=== PATIENT | male | born 1955 | race Caucasian/White ===

== ENCOUNTER 2022-11-05 11:45 | Observation (INO) | payer OTHER ==
[2022-11-05] MEDS ORDERED: NITROGLYCERIN 0.4 MG/TAB SL ONE (12:00)
[2022-11-05 12:05] LABS: Absolute Lymphocytes (CBC) 2.5 K/uL (0.7-4.9); Lymphocytes % 35.4 % (15.3-44.8); MCV 94.3 fL (80-100); MPV 7.4 fL (7.6-11.3); Protime INR 1.02; RBC Red Blood Cell Count 4.66 M/uL (4.33-5.43)
[2022-11-05 12:28] LABS: Albumin 3.9 g/dL (3.4-5.0); Bilirubin Direct 0.1 mg/dL (0-0.2); Bilirubin Total 0.4 mg/dL (0.2-1.0); Magnesium 2.4 mg/dL (1.6-2.4); Potassium 3.6 mmol/L (3.5-5.1); Protein, Total 7.8 g/dL (6.4-8.2); Troponin High Sensitivity 5.3 pg/mL (<58.9)
--- NOTE | 2022-11-05 12:45 | RAD REPORT ---
EXAM DESCRIPTION: Ramesh Single View11/05/2022 12:31 pm CLINICAL HISTORY: Chest pain COMPARISON: none FINDINGS: The lungs appear clear of acute infiltrate. The heart is normal size IMPRESSION: No acute abnormalities displayed
--- NOTE | 2022-11-05 13:33 | ER ---
Nurse's Notes [facility] Name: Albert Andrea Age: 66 yrs Sex: Male : 1955 Arrival Date: 11/05/2022 Time: 11:48 Bed 2 Private MD: Diagnosis: Chest pain, unspecified Presentation: 11/05 11:48 Chief complaint: Patient states: Sudden onset of chest pressure that began 15 minutes ss ago. Coronavirus screen: Client denies travel out of the [place] in the last 14 days. Ebola Screen: Patient denies exposure to infectious person. Patient denies travel to an Ebola-affected area in the 21 days before illness onset. Initial Sepsis Screen: Does the patient meet any 2 criteria? No. Patient's initial sepsis screen is negative. Does the patient have a suspected source of infection? No. Patient's initial sepsis screen is negative. Risk Assessment: Do you want to hurt yourself or someone else? Patient reports no desire to harm self or others. Onset of symptoms was November 05, 2022. 11:48 Method Of Arrival: Ambulatory ss 11:48 Acuity: YULIA 2 ss Triage Assessment: 12:00 General: Appears distressed, uncomfortable, obese, Behavior is cooperative, appropriate ld1 for age, anxious. Pain: Complains of pain in chest. EENT: No deficits noted. Neuro: No deficits noted. Cardiovascular: Reports chest pain. Respiratory: No deficits noted. GI: No signs and/or symptoms were reported involving the gastrointestinal system. : No signs and/or symptoms were reported regarding the genitourinary system. Derm: No deficits noted. Musculoskeletal: No deficits noted. Historical: - Allergies: 11:58 No Known Allergies; ss - Immunization history:: Client reports receiving the 2nd dose of the Covid vaccine. - Social history:: Smoking status: Patient denies any tobacco usage or history of. Screenin:00 [facility] ED Fall Risk Assessment (Adult) History of falling in the last 3 months, ld1 including since admission No falls in past 3 months (0 pts). Abuse screen: Denies threats or abuse. Denies injuries from another. Nutritional screening: No deficits noted. Tuberculosis screening: No symptoms or risk factors identified. Assessment: 12:00 General: SEE TRIAGE NOTE. ld1 13:30 Reassessment: ADMIT INITIATED Patient states symptoms have improved. ld1 14:36 Reassessment: ROOM ASSIGNED. bp 15:28 Reassessment: REPORT TO JULIAN MACK FOR RM 219. bp Vital Signs: 11:48 BP 172 / 108; Pulse 78; Resp 16; Temp 98.2(O); Pulse Ox 100% on R/A; Weight 111.13 kg; ss Height 5 ft. 11 in. (180.34 cm); Pain 8/10; 12:40 BP 119 / 81; Pulse 84; Resp 17; Pulse Ox 98% ; ld1 13:30 BP 133 / 75; Pulse 88; Resp 21; Pulse Ox 99% ; ld1 14:36 BP 135 / 76; Pulse 95; Resp 21; Pulse Ox 96% ; bp 15:28 BP 121 / 72; Pulse 90; Resp 21; Pulse Ox 99% ; bp 11:48 Body Mass Index 34.17 (111.13 kg, 180.34 cm) ss ED Course: 11:48 Patient arrived in ED. bp 11:49 Tawny Alcaraz MD is Attending Physician. sp3 11:50 Inserted saline lock: 20 gauge in right antecubital area, using aseptic technique. ss Blood collected. Oxygen administration via nasal cannula \T\ 2L/min. 11:58 Triage completed. ss 11:58 Arm band placed on right wrist. ss 12:00 Patient has correct armband on for positive identification. Placed in gown. Bed in low ld1 position. Call light in reach. Side rails up X2. Client placed on continuous cardiac and pulse oximetry monitoring. NIBP monitoring applied. 12:04 Juan Betancourt, MARTINA is Primary Nurse. bp 12:33 XRAY Chest (1 view) In Process Unspecified. EDMS 13:30 Reilly Dialy MD is Hospitalizing Provider. sp3 15:28 No provider procedures requiring assistance completed. Patient admitted, IV remains in bp place. Administered Medications: 12:00 Drug: Nitroglycerin 0.4 mg Route: Sublingual; bp 12:05 Drug: Nitroglycerin 0.4 mg Route: Sublingual; bp 15:29 Follow up: Response: No adverse reaction bp 12:05 Drug: Aspirin 162 mg Route: PO; bp 15:30 Follow up: Response: No adverse reaction bp Medication: 15:28 VIS not applicable for this client. bp Outcome: 13:32 Decision to Hospitalize by Provider. sp3 15:28 Admitted to Med/surg accompanied by tech, via wheelchair, room 219, with chart, Report bp called to ANISHA MACK 15:28 Condition: stable 15:28 Instructed on the need for admit. 15:48 Patient left the ED. bp Signatures: Dispatcher [employer] EDMS Debra Boggs RN RN ss Juan Betancourt RN RN bp Quita Umanzor RN RN ld1 Tawny Alcaraz MD MD sp3
--- NOTE | 2022-11-05 13:33 | EDPHYS ---
Physician Documentation [facility] Name: Albert Andrea Age: 66 yrs Sex: Male : 1955 Arrival Date: 11/05/2022 Time: 11:48 Bed 2 Private MD: ED Physician Tawny Alcaraz HPI: 11/05 12:02 This 66 yrs old Male presents to ER via Ambulatory with complaints of Chest Pressure. sp3 12:02 66-year-old male with a history of coronary artery disease with a single stent placed sp3 in 2017 and also history of hypertension now presents to the ED with 30 minutes of chest pain prior to arrival crushing in nature left-sided substernal. Patient reports no jaw pain or left arm pain or epigastric pain or back pain. On systems he also denies headache, URI symptoms, fever, neck pain, shortness of breath, abdominal pain, nausea, vomiting, diarrhea, syncope, near syncope, focal neurodeficit, or any other signs or symptoms.. Historical: - Allergies: 11:58 No Known Allergies; ss - Immunization history:: Client reports receiving the 2nd dose of the Covid vaccine. - Social history:: Smoking status: Patient denies any tobacco usage or history of. ROS: 12:03 Constitutional: Negative for fever, chills, and weight loss, Eyes: Negative for injury, sp3 pain, redness, and discharge, ENT: Negative for injury, pain, and discharge, Neck: Negative for injury, pain, and swelling, Respiratory: Negative for shortness of breath, cough, wheezing, and pleuritic chest pain, Abdomen/GI: Negative for abdominal pain, nausea, vomiting, diarrhea, and constipation, Back: Negative for injury and pain, MS/Extremity: Negative for injury and deformity, Skin: Negative for injury, rash, and discoloration, Neuro: Negative for headache, weakness, numbness, tingling, and seizure, Psych: Negative for depression, anxiety, suicide ideation, homicidal ideation, and hallucinations, Allergy/Immunology: Negative for hives, rash, and allergies, Endocrine: Negative for neck swelling, polydipsia, polyuria, polyphagia, and marked weight changes, Hematologic/Lymphatic: Negative for swollen nodes, abnormal bleeding, and unusual bruising. 12:03 All other systems are negative. Exam: 12:03 Constitutional: This is a well developed, well nourished patient who is awake, alert, sp3 and in no acute distress. Head/Face: Normocephalic, atraumatic. Eyes: Pupils equal round and reactive to light, extra-ocular motions intact. Lids and lashes normal. Conjunctiva and sclera are non-icteric and not injected. Cornea within normal limits. Periorbital areas with no swelling, redness, or edema. ENT: Nares patent. No nasal discharge, no septal abnormalities noted. External auditory canals are clear. Oropharynx with no redness, swelling, or masses, exudates, or evidence of obstruction, uvula midline. Mucous membranes moist. Neck: Trachea midline, no thyromegaly or masses palpated, and no cervical lymphadenopathy. Supple, full range of motion without nuchal rigidity, or vertebral point tenderness. No Meningismus. Chest/axilla: Normal chest wall appearance and motion. Nontender with no deformity. No lesions are appreciated. Cardiovascular: Regular rate and rhythm with a normal S1 and S2. No gallops, murmurs, or rubs. Normal PMI, no JVD. No pulse deficits. Respiratory: Lungs have equal breath sounds bilaterally, clear to auscultation and percussion. No rales, rhonchi or wheezes noted. No increased work of breathing, no retractions or nasal flaring. Abdomen/GI: Soft, non-tender, with normal bowel sounds. No distension or tympany. No guarding or rebound. No evidence of tenderness throughout. Back: No spinal tenderness. No costovertebral tenderness. Full range of motion. Skin: Warm, dry with normal turgor. Normal color with no rashes, no lesions, and no evidence of cellulitis. MS/ Extremity: Pulses equal, no cyanosis. Neurovascular intact. Full, normal range of motion. Neuro: Awake and alert, GCS 15, oriented to person, place, time, and situation. Cranial nerves II-XII grossly intact. Motor strength 5/5 in all extremities. Sensory grossly intact. Cerebellar exam normal. Normal gait. Psych: Awake, alert, with orientation to person, place and time. Behavior, mood, and affect are within normal limits. 12:03 ECG was reviewed by the Attending Physician. EKG demonstrates normal sinus rhythm at 81 bpm with normal intervals, normal axis, normal QRS, nonspecific diffuse ST/T changes with isolated T wave inversion in lead III. Vital Signs: 11:48 BP 172 / 108; Pulse 78; Resp 16; Temp 98.2(O); Pulse Ox 100% on R/A; Weight 111.13 kg; ss Height 5 ft. 11 in. (180.34 cm); Pain 8/10; 12:40 BP 119 / 81; Pulse 84; Resp 17; Pulse Ox 98% ; ld1 13:30 BP 133 / 75; Pulse 88; Resp 21; Pulse Ox 99% ; ld1 14:36 BP 135 / 76; Pulse 95; Resp 21; Pulse Ox 96% ; bp 15:28 BP 121 / 72; Pulse 90; Resp 21; Pulse Ox 99% ; bp 11:48 Body Mass Index 34.17 (111.13 kg, 180.34 cm) ss MDM: 11:56 Patient medically screened. sp3 12:04 Data reviewed: vital signs, nurses notes, lab test result(s), EKG, radiologic studies. sp3 ED course: 66-year-old male with chest pain. Differential diagnosis includes ST elevation IL, coronary artery disease, angina, unstable angina, nonspecific chest pain, musculoskeletal chest pain, esophagitis, gastritis, reflux, pleurisy. EKG does not demonstrate ST elevation - we will monitor with additional EKGs as needed. Patient will be given nitroglycerin given his hypertension in the ED along with continued pain. Will monitor closely and given his history will admit to the hospital for ER observation and cardiology consult.. 13:29 ED course: Patient's pain is improved and blood pressures come down. First set of sp3 markers are negative. Given high heart score, we will admit patient observation under the hospitalist service.. 11/05 11:50 Order name: Basic Metabolic Panel; Complete Time: 13:04 sp3 11/05 11:50 Order name: CBC with Diff; Complete Time: 13: sp3 11/05 11:50 Order name: LFT's; Complete Time: 13: sp3 11/05 11:50 Order name: Magnesium; Complete Time: 13: sp3 11/05 11:50 Order name: NT PRO-BNP; Complete Time: 13: sp3 11/05 11:50 Order name: PT-INR; Complete Time: 13: sp3 11/05 11:50 Order name: Troponin HS; Complete Time: 13:04 sp3 11/05 14:07 Order name: T4 Free EDMS 11/05 14:07 Order name: Thyroid Stimulating Hormone EDMS 11/05 14:07 Order name: Urinalysis EDMS 11/05 14:07 Order name: Basic Metabolic Panel EDMS 11/05 14:07 Order name: Basic Metabolic Panel EDMS 11/05 14:07 Order name: Basic Metabolic Panel EDMS 11/05 14:07 Order name: Basic Metabolic Panel EDMS 11/05 11:50 Order name: XRAY Chest (1 view); Complete Time: 13:04 sp3 11/05 14:07 Order name: Echo with Doppler EDMS 11/05 14:07 Order name: CBC with Automated Diff EDMS 11/05 14:07 Order name: CBC with Automated Diff EDMS 11/05 14:07 Order name: CBC with Automated Diff EDMS 11/05 14:07 Order name: CBC with Automated Diff EDMS 11/05 14:07 Order name: Lipid Profile EDMS 11/05 14:07 Order name: Lipid Profile EDMS 11/05 14:07 Order name: Magnesium EDMS 11/05 14:07 Order name: Magnesium EDMS 11/05 14:07 Order name: Troponin High Sensitivity EDMS 11/05 14:07 Order name: Troponin High Sensitivity EDMS 11/05 14:07 Order name: Troponin High Sensitivity EDMS 11/05 14:07 Order name: SARS RAPID ld1 11/05 14:29 Order name: SARS-COV-2 Antigen Rapid EDMS 11/05 11:50 Order name: EKG; Complete Time: 11:51 3 11/05 11:50 Order name: Cardiac monitoring; Complete Time: 12:05 sp3 11/05 11:50 Order name: EKG - Nurse/Tech; Complete Time: 12:05 sp3 11/05 11:50 Order name: IV Saline Lock; Complete Time: 12:05 sp3 11/05 11:50 Order name: Labs collected and sent; Complete Time: 12:05 sp3 11/05 11:50 Order name: O2 Per Protocol; Complete Time: 12:05 sp3 11/05 11:50 Order name: O2 Sat Monitoring; Complete Time: 12:05 sp3 11/05 14:07 Order name: Heart Healthy EDMS Administered Medications: 12:00 Drug: Nitroglycerin 0.4 mg Route: Sublingual; bp 12:05 Drug: Nitroglycerin 0.4 mg Route: Sublingual; bp 15:29 Follow up: Response: No adverse reaction bp 12:05 Drug: Aspirin 162 mg Route: PO; bp 15:30 Follow up: Response: No adverse reaction bp Disposition Summary: 11/05/22 13:32 Hospitalization Ordered Hospitalization Status: Observation sp3 Provider: Reilly Daily sp3 Location: Telemetry/MedSurg (observation) sp3 Condition: Stable sp3 Problem: new sp3 Symptoms: are unchanged sp3 Bed/Room Type: Standard sp3 Room Assignment: 219(11/05/22 14:35) em1 Diagnosis - Chest pain, unspecified sp3 Forms: - Medication Reconciliation Form sp3 - SBAR form sp3 Signatures: Dispatcher [employer] Robbie Otero em1 Debra Boggs RN RN ss Juan Betancourt RN RN Tawny Wood MD MD sp3 Corrections: (The following items were deleted from the chart) 14:35 13:32 sp3 em1
[2022-11-05] MEDS ORDERED: ACETAMINOPHEN 500 MG TAB PO PRN (13:58)
[2022-11-05] MEDS ORDERED: ONDANSETRON 4 MG/2 ML VIAL IV PRN (13:58)
--- NOTE | 2022-11-05 14:13 | P.HP ---
Certification for Inpatient Patient admitted to: Observation With expected LOS: <2 Midnights Patient will require the following post-hospital care: None Practitioner: I am a practitioner with admitting privileges, knowledge of patient current condition, hospital course, and medical plan of care. Services: Services provided to patient in accordance with Admission requirements found in Title 42 Section 412.3 of the Code of Federal Regulations <Compa Johnsoninald - Last Filed: 11/05/22 17:22> Patient History Date of Service: 11/05/22 Primary Care Provider: Emerson Reason for admission: Chest pain History of Present Illness: This is a 65-year-old male with no prior medical history except for ch est pain back in 2017 and stent placement x1. Patient presents to the emergency room with complaints of chest pain. Patient is alert and oriented and answers all questions appropriately. Patient stated that his chest pain started an hour or 2 ago while he was sitting at his dining room table finishing up breakfast. Patient reported substernal chest pain with 8 out of 10 pain described as being crushing and "as someone was sitting on my chest" and nonradiating. Only associated symptoms of diaphoresis was reported by the patient. He denies headache, fever, neck pain, shortness of breath, abdominal pain, nausea, vomiting, diarrhea, syncope, near syncope. Patient said he took an aspirin and then drove himself to the hospital. Patient denies any stressors that could have contributed to his chest pain patient was treated with nitro in the emergency room. Patient reports resolved chest pain. Patient reported having a stress test done back in 2017. He does not recall having an echo done. Initial troponin were negative in the ER, chest x-ray was negative for any acute findings. EKG showed normal sinus rhythm with a rate of 83. Patient will be admitted under care of Dr. Daily. Cardiology will be consulted for further recommendations. Home medications list reviewed: Yes - Past Medical/Surgical History Past Medical History: Patient denies medical history -: Obesity -: Stents x1 - Family History Family History: Reviewed- Non-Contributory - Family History Father -: Cancer Notes: Pts father from colon cancer when he was 43. - Social History Smoking Status: Never smoker Alcohol use: Yes CD- Drugs: No Caffeine use: Yes Place of Residence: Home <Hayden Johnson - Last Filed: 11/05/22 17:22> Date of Service: 11/05/22 <Reilly Daily - Last Filed: 11/05/22 18:57> Allergies No Known Allergies Allergy (Unverified 11/05/22 14:11) Home Medications: RX: Aspirin [Low Dose Aspirin EC] 1 tab PO DAILY 11/05/22 RX: Carvedilol [Coreg] 25 mg PO BID 11/05/22 Ticagrelor [Brilinta] 60 mg PO DAILY 11/05/22 Review of Systems 10-point ROS is otherwise unremarkable Cardiovascular: Chest Pain <Hayden Johnson - Last Filed: 11/05/22 17:22> Physical Examination - Vital Signs Temperature: 98.2 F Blood Pressure: 133/75 Pulse: 88 Respirations: 15 Pulse Ox (%): 99 - Physical Exam General: Alert, Oriented x3 HEENT: Atraumatic, Normocephalic, PERRLA Neck: Supple, 2+ carotid pulse no bruit Respiratory: Clear to auscultation bilaterally, Normal air movement Cardiovascular: No edema, Normal pulses, Regular rate/rhythm Capillary refill: <2 Seconds Gastrointestinal: Normal bowel sounds Musculoskeletal: No clubbing, No swelling Integumentary: No rashes, No breakdown Neurological: Normal speech, Normal strength at 5/5 x4 extr, Normal tone, Sensation intact Lymphatics: No axilla or inguinal lymphadenopathy - Studies Laboratory Data (last 24 hrs) 11/05/22 11:54: PT 11.2, INR 1.02 11/05/22 11:54: WBC 7.10, Hgb 14.9, Hct 44.0, Plt Count 229 11/05/22 11:54: Sodium 137, Potassium 3.6, BUN 20 H, Creatinine 1.07, Glucose 130 H, Magnesium 2.4, Total Bilirubin 0.4, AST 19, ALT 24, Alkaline Phosphatase 64 <Hayden Johnson - Last Filed: 11/05/22 17:22> - Studies Laboratory Data (last 24 hrs) 11/05/22 11:54: PT 11.2, INR 1.02 11/05/22 11:54: WBC 7.10, Hgb 14.9, Hct 44.0, Plt Count 229 11/05/22 11:54: Sodium 137, Potassium 3.6, BUN 20 H, Creatinine 1.07, Glucose 130 H, Magnesium 2.4, Total Bilirubin 0.4, AST 19, ALT 24, Alkaline Phosphatase 64 <Reilly Daily - Last Filed: 11/05/22 18:57> Assessment and Plan - Plan Assessment Chest pain Obesity Plan Chest pain-chest pain was resolved after administration of nitro. Patient is currently stable. Continue telemetry. Cardiology consulted. Continue aspirin and Plavix with history of stent. Patient refused to have statin on board. Trend serial troponins. continue heart healthy diet. [id number] score 3 Echo pending Stress test back in 2017 Obesity-educated patient on lifestyle modification DVT PPX- Lovenox Full code Discharge Plan: Home Plan to discharge in: 48 Hours - Advance Directives Does patient have a Living Will: No Does patient have a Durable POA for Healthcare: No - Code Status/Comfort Care Code Status Assessed: Yes (Full code) Critical Care: No Time Spent Managing Pts Care (In Minutes): 50 <Hayden Johnson - Last Filed: 11/05/22 17:22> Physician Review: Patient Assessed, Agree with Above Assessment and Plan Physician Review Additional Text: Mr. Andrea was admitted for an NSTEMI. He took 81 mg aspirin at home, was given an additional 3 doses of baby aspirin here. Spoke with Dr. Singer, recommended continuing his ticagrelor and starting a heparin drip. Dr. Singer plans for [facility] tomorrow morning @ 07:00 AM. <Reilly Daily - Last Filed: 11/05/22 18:57>
[2022-11-05 14:29] LABS: SARS-CoV-2 Antigen Rapid Res Negative (Negative)
[2022-11-05] MEDS ORDERED: ENOXAPARIN 40 MG/0.4 ML SQ SCH (15:00)
[2022-11-05 16:42] LABS: Thyroid Stimulating Hormone 1.53 uIU/mL (0.358-3.740)
[2022-11-05 16:43] VITALS: BMI 34.2
[2022-11-05] MEDS ORDERED: ASPIRIN EC 81 MG TAB PO ONE (16:52)
[2022-11-05] MEDS ORDERED: HEPARIN/D5W 25,000 UNIT/500 ML BAG IV PRN (18:00)
[2022-11-05] MEDS ORDERED: INFLUENZA VACCINE (for 6+ mo) 0.5 ML DOSE IMVAC ONE (18:00)
[2022-11-05] MEDS ORDERED: PNEUMOCOCCAL VACCINE 0.5 ML IMVAC ONE (18:00)
[2022-11-05] MEDS: carvediloL 25 MG TAB PO SCH (18:40)
[2022-11-05 19:46] LABS: Specific Gravity 1.026 (1.005-1.030); Urine Bilirubin NEGATIVE (Negative); Urine Blood Negative (Negative); Urine Clarity Clear (Clear); Urine Color Light-Yellow (Yellow); Urine Glucose NEGATIVE (Negative); Urine Protein NEGATIVE (Negative); Urine Urobilinogen Normal (Normal); Urine pH 6.5 (5.0-7.0)
[2022-11-05] MEDS ORDERED: carvediloL 6.25 MG TAB PO SCH (21:00)
[2022-11-05] MEDS: TICAGRELOR 90 MG TABLET PO SCH (21:40)
--- NOTE | 2022-11-05 23:01 | CON ---
Date of Consultation: 11/05/2022 Reason For Consultation: Chest pain. History Of Present Illness: This 66-year-old male with history of coronary artery disease status post cardiac stent placement in 2017 comes in with chest pain at times suddenly, pressure like, radiated to his neck. Immediately he came to the emergency room. By the time he received a nitroglycerin, chest pain subsided completely. Pain lasted for 1 hour and he has been chest pain free. His troponin initially was normal and jumped to 700 range. Past Medical History: Coronary artery disease and hypertension. Medications: Refer to reconciliation sheet for detailed list. Allergies: NO KNOWN DRUG ALLERGIES. Family History: No premature coronary artery disease or cancer. Social History: He does not smoke or drink. Does not use any drugs. Review of Systems: All systems reviewed and they were negative except for mentioned in HPI. Physical Examination: Vital Signs: Reviewed. Head And Neck: Pupils are equal and reactive to light. Intact eye movements. No JVD. No cervical lymphadenopathy. Neck is supple. Thyroid is not enlarged. Lungs: Clear to auscultation bilaterally. No rhonchi, wheezing, or crackles. No accessory muscle use. Heart: Regular rate and rhythm. No extra sounds. Abdomen: Soft, nontender. Bowel sounds positive. No organomegaly. No masses or hernia. No rigidity or rebound. Extremities: No edema, clubbing, or cyanosis. Intact pulses. Skin: No rash noted. Neurologic: Alert, awake, and oriented x3. No acute focal deficits appreciated. Investigations: Troponin 768. BUN 20, creatinine 1.0 and hemoglobin is 14.9. Assessment And Recommendation: 1. Non-ST elevation myocardial infarction. He is chest pain free now. Continue aspirin and Brilinta for tonight. Start him on heparin drip. Keep him n.p.o. past midnight. Plan for coronary angiogram early in the morning. If he gets chest pain, then start nitroglycerin patch. 2. Hypertension. Blood pressure is controlled. Continue current management. The patient needs to be placed on high-dose statin, Lipitor 40 mg at bedtime. SR/MODL Voice ID: [id number] Report ID: [id number] [facility]
[2022-11-06 02:52] LABS: Absolute Lymphocytes (CBC) 2.2 K/uL (0.7-4.9); Hematocrit 38.9 % (39.6-49.0); Lymphocytes % 27.4 % (15.3-44.8); MCV 94.1 fL (80-100); MPV 7.5 fL (7.6-11.3); RBC Red Blood Cell Count 4.13 M/uL (4.33-5.43)
[2022-11-06 03:10] LABS: Magnesium 2.2 mg/dL (1.6-2.4); Potassium 3.8 mmol/L (3.5-5.1)
[2022-11-06] MEDS: carvediloL 25 MG TAB PO SCH ×2 (06:01→17:32)
[2022-11-06] MEDS: TICAGRELOR 90 MG TABLET PO SCH (06:02)
[2022-11-06] MEDS ORDERED: LIDOCAINE 1% 20 ML MDV ONE (06:09)
[2022-11-06] MEDS ORDERED: HEPARIN 5000 UNIT/ML 1 ML VIAL ONE (06:09)
[2022-11-06] MEDS ORDERED: HEPA 1000U/500MLS 2,000 UNIT/1,000 ML BAG IV ONE (06:09)
[2022-11-06] MEDS ORDERED: FENTANYL CITR 100 MCG/2 ML ONE (06:09)
[2022-11-06] MEDS ORDERED: MIDAZOLAM HCL 2 MG/2 ML INJ ONE (06:09)
[2022-11-06] MEDS ORDERED: NITROGLYCERIN/D5W 25 MG/250 ML BTL IV ONE (06:10)
[2022-11-06] MEDS ORDERED: VERAPAMIL HCL 10 MG/4 ML VIAL IV ONE (06:10)
[2022-11-06] MEDS ORDERED: HEPARIN 10,000 UNIT/10 ML VIAL IV ONE (06:10)
[2022-11-06] MEDS ORDERED: NITROGLYCERIN 100 MCG/ML SYR (for cath lab use only) IV ONE (06:10)
[2022-11-06] MEDS ORDERED: ATROPINE SULF 1 MG/10 ML SYR IV ONE (06:10)
--- NOTE | 2022-11-06 06:14 | P.PN ---
Subjective Date of Service: 11/06/22 Primary Care Provider: Emerson Chief Complaint: Chest pain No acute events since admission. Overnight, he had no recurrent episodes of chest pain. His troponin up-trended, but plateaued. He denies any palpitations, shortness of breath, abdominal pain, nausea, or vomiting. He has been NPO past midnight in anticipation for a [facility], currently scheduled for 07:30 AM this morning. Review of Systems 10-point ROS is otherwise unremarkable General: Sweats (resolved) Cardiovascular: Chest Pain (resolved) Physical Examination - Vital Signs Temperature: 98.5 F Blood Pressure: 142/85 Pulse: 79 Respirations: 18 Pulse Ox (%): 95 - Physical Exam General: Alert, In no apparent distress, Oriented x3 HEENT: Atraumatic, Mucous membr. moist/pink, EOMI, Sclerae nonicteric Neck: JVD not distended Respiratory: Clear to auscultation bilaterally, Normal air movement Cardiovascular: No edema, Regular rate/rhythm, Normal S1 S2, No gallops, No rubs, No murmurs Gastrointestinal: Normal bowel sounds, Soft and benign, Non-distended, No tenderness, No rebound, No guarding Musculoskeletal: No clubbing Integumentary: No rashes Neurological: Normal speech, Normal affect - Studies Laboratory Data (last 24 hrs) 11/05/22 11:54: PT 11.2, INR 1.02 11/05/22 11:54: WBC 7.10, Hgb 14.9, Hct 44.0, Plt Count 229 11/05/22 11:54: Sodium 137, Potassium 3.6, BUN 20 H, Creatinine 1.07, Glucose 130 H, Magnesium 2.4, Total Bilirubin 0.4, AST 19, ALT 24, Alkaline Phosphatase 64 Assessment And Plan - Plan # Non-ST Segment Elevation Myocardial Infarction # Coronary Artery Disease s/p PCI (August 2017) # Obesity - BMI 34.2 kg/m2 - Evaluation thus far: - EKG: without STEMI criteria, trend - Serial troponin: 5.3 -> 768.6 -> 1355.9 -> 1144.4 - Ordered transthoracic echocardiogram - Chest x-ray = "no acute abnormalities displayed" - Management plan: - Consult Cardiology and spoke with Dr. Singer - recommendations appreciated - Plan for [facility] this morning at 07:30 AM - S/P aspirin 324 mg PO x 1 on 11/05/2022 - Continue aspirin, carvedilol, ticagrelor, and heparin drip - Started rosuvastatin - Plan to start VALE-inhibitor/ARB as tolerated Reilly Daily M.D.
[2022-11-06] MEDS ORDERED: NA CHLORIDE 0.9% 500 ML ONE (06:26)
[2022-11-06] MEDS ORDERED: ROSUVASTATIN 10 MG TAB PO SCH (06:30)
[2022-11-06] MEDS ORDERED: REGADENOSON 0.4 MG/5 ML SYR IV ONE ×3 (07:40→08:26)
[2022-11-06] MEDS ORDERED: ONDANSETRON 4 MG/2 ML VIAL ONE (08:07)
[2022-11-06] MEDS ORDERED: POTASSIUM CL SA 10 MEQ TAB PO ONE (09:00)
[2022-11-06] MEDS ORDERED: ASPIRIN EC 81 MG TAB PO SCH (09:00)
--- NOTE | 2022-11-06 16:03 | EKG ---
Test Date: 2022-11-05 Test Time: 11:49:36 Hand Paint Mixer: DASHAWN MEASUREMENT RESULTS: Intervals: Rate: 81 AL: 146 QRSD: 98 QT: 384 QTc: 446 [place]: P: -1 AL: 146 QRS: 61 T: 11 INTERPRETIVE STATEMENTS: Normal sinus rhythm ST abnormality, possible digitalis effect Abnormal ECG No previous ECG available for comparison Electronically Signed On 11-06-22 16:00:43 [employer] TEACH[employer] by Ashok Singer
--- NOTE | 2022-11-06 19:02 | P.DS ---
Admission Date: 11/05/22 Discharge Date: 11/06/22 Primary Care Provider: Emerson Disposition: ROUTINE DISCHARGE Discharge Condition: GOOD Reason for Admission: Chest pain Consultations: CardiologyDr. Singer Procedures: Cardiac catheterization 11/06/2022 per cardiology with nonobstructive CAD no need for intervention. See cardiology report for further details. Brief History of Present Illness: This is a 65-year-old male with no prior medical history except for chest pain back in 2017 and stent placement x1. Patient presents to the emergency room with complaints of chest pain. Patient is alert and oriented and answers all questions appropriately. Patient stated that his chest pain started an hour or 2 ago while he was sitting at his dining room table finishing up breakfast. Patient reported substernal chest pain with 8 out of 10 pain described as being crushing and "as someone was sitting on my chest" and nonradiating. Only associated symptoms of diaphoresis was reported by the patient. He denies headache, fever, neck pain, shortness of breath, abdominal pain, nausea, vomiting, diarrhea, syncope, near syncope. Patient said he took an aspirin and then drove himself to the hospital. Patient denies any stressors that could have contributed to his chest pain patient was treated with nitro in the emergency room. Patient reports resolved chest pain. Patient reported having a stress test done back in 2017. He does not recall having an echo done. Initial troponin were negative in the ER, chest x-ray was negative for any acute findings. EKG showed normal sinus rhythm with a rate of 83. Patient will be admitted under care of Dr. Daily. Cardiology will be consulted for further recommendations. Hospital Course: Patient was admitted with chest pain, NSTEMI with previous stent in place. He had a heart catheterization performed today with nonobstructive CAD and no need for intervention, he was cleared for discharge by cardiology. Cardiology recommended initiation of Imdur 30 mg daily in addition to his current regiment which included aspirin, carvedilol, Brilinta, statin. I discussed this with the patient it was noted that his blood pressure was running on the low side this evening around 115 systolic, his blood pressure throughout admission has been in the 120s to 130s. After further discussion with the patient the decision was made to hold off on the prescription for Imdur at this time and follow-up with cardiology outpatient to further adjust regimen. Strict return precautions given for any new or worsening symptoms. Patient denies any complaints at this time has been chest pain-free since admission to the hospital. Continue with outpatient follow-up with cardiology. Vital Signs/Physical Exam: Temp Pulse Resp BP Pulse Ox 97.8 F 77 16 114/53 L 96 11/06/22 16:00 11/06/22 17:32 11/06/22 16:00 11/06/22 17:32 11/06/22 16:00 General: Alert, In no apparent distress, Oriented x3 HEENT: Atraumatic, PERRLA, EOMI Neck: Supple, JVD not distended Respiratory: Clear to auscultation bilaterally, Normal air movement Cardiovascular: Regular rate/rhythm, Normal S1 S2 Gastrointestinal: Normal bowel sounds, No tenderness Musculoskeletal: No tenderness Integumentary: No rashes Neurological: Normal speech, Normal tone, Normal affect Laboratory Data at Discharge: WBC 7.90 K/uL (4.3-10.9) 11/06/22 02:29 Hgb 13.0 g/dL (13.6-17.9) L D 11/06/22 02:29 Hct 38.9 % (39.6-49.0) L 11/06/22 02:29 Plt Count 193 K/uL (152-406) 11/06/22 02:29 PT 11.2 SECONDS (9.5-12.5) 11/05/22 11:54 INR 1.02 11/05/22 11:54 APTT 53.0 SECONDS (24.3-36.9) H 11/06/22 02:29 Sodium 140 mmol/L (136-145) 11/06/22 02:29 Potassium 3.8 mmol/L (3.5-5.1) 11/06/22 02:29 BUN 17 mg/dL (7-18) 11/06/22 02:29 Creatinine 0.82 mg/dL (0.70-1.30) 11/06/22 02:29 Glucose 133 mg/dL (74-106) H 11/06/22 02:29 Magnesium 2.2 mg/dL (1.6-2.4) 11/06/22 02:29 Total Bilirubin 0.4 mg/dL (0.2-1.0) 11/05/22 11:54 AST 19 U/L (15-37) 11/05/22 11:54 ALT 24 U/L (16-61) 11/05/22 11:54 Alkaline Phosphatase 64 U/L (45-117) 11/05/22 11:54 Triglycerides 66 mg/dL (<150) 11/06/22 02:29 Cholesterol 170 mg/dL (<200) 11/06/22 02:29 HDL Cholesterol 35 mg/dL (40-60) L 11/06/22 02:29 Cholesterol/HDL Ratio 4.86 11/06/22 02:29 Home Medications: Aspirin [Low Dose Aspirin EC] 1 tab PO DAILY 11/05/22 Carvedilol [Coreg] 25 mg PO BID 11/05/22 Ticagrelor [Brilinta] 60 mg PO DAILY 11/05/22 Diet: AHA Activity: Ad misael Followup: NONE,NONE [Primary Care Provider] - Ashok Singer MD [ACTIVE - CAN ADMIT] - Time spent managing pt's care (in minutes): 20
[2022-11-06 19:03] VITALS: O2SAT 96
[2022-11-06 20:53] VITALS: BP 127/77; TEMP 98.6
--- NOTE | 2022-11-06 22:58 | PN ---
Date of Progress Note: 11/06/2022 Subjective: Seen by bedside, doing clinically well. He does not have any chest pain or shortness of breath. No further chest pain. Review of Systems: No chest pain, shortness of breath, orthopnea, cough, nausea, vomiting, or diarrhea. All other syste ms reviewed and they were negative. Physical Examination: Vital Signs: Reviewed. Head And Neck: Pupils are equal and reactive to light. Intact eye movements. No JVD. No cervical lymphadenopathy. Neck is supple. Thyroid is not enlarged. Lungs: Clear to auscultation bilaterally. No rhonchi, wheezing, or crackles. No accessory muscle u se. Heart: Regular rate and rhythm. No extra sounds. Abdomen: Soft, nontender. Bowel sounds positive. No organomegaly. No masses or hernia. No rigidi ty or rebound. Extremities: No edema, clubbing, or cyanosis. Intact pulses. Skin: No rash or nodule. Neuro: Alert, awake, and oriented x3. No acute focal deficits appreciated. Investigations: BUN 17, creatinine 0.8. Troponin peaked at 1305 and down to 535. Hemoglobin is 13. 0. Assessment/recommendation: Chest pain with elevated troponin, suggestive of non-ST elevation myocard ial infarction. However, I did coronary angiogram on him today and there is no critical stenosis. H e has moderate disease of the left anterior descending and right coronary artery. For both, I did FF R and they were both negative. At this point, I recommend to add Imdur 30 mg daily and the patient c an be released to follow up as an outpatient and to continue the dual anti-platelet therapy as well a s Coreg and statin. Thank you for the consult. Cardiology will sign off. SR/MODL Voice ID: [id number] Report ID: [id number]
--- NOTE | 2022-11-07 02:38 | OP ---
Date of Procedure: 11/06/2022 Surgeon: MELANIA ORDAZ Procedures Performed: 1.Selective coronary angiogram. 2.Left heart catheterization. 3.Fractional flow reserve of proximal left anterior descending, moderate stenosis, was negative at 0 .87. 4.Fractional flow reserve of mid right coronary artery, moderate stenosis, was negative at 0.89. Indication: Non-ST elevation myocardial infarction. Access: Right radial artery 6-Kosovan closed with TR band. Complications: None. Estimated Blood Loss: Bleeding less than 10 mL. Anesthesia: Total sedation time was 50 minutes, used fentanyl and Versed. Description Of Procedure: After risks, benefits, and alternatives were explained, the patient agreed to proceed and signed informed consent. The patient was brought into the cardiac catheterization la boratory and prepped and draped in usual sterile fashion. Then, I accessed the right radial artery u sing pediatric micropuncture kit, placed a 6-Kosovan Slender sheath and took 5-Kosovan [place] 4 catheter into the aortic root and engaged left main and then right coronary artery, took standard views and t hen the catheter was advanced over the wire into the LV, measured LVEDP and pullback did not record a ny gradient. Then I gave systemic heparin to assure ACT level above 250 and then took Ikari right 3. 5 guide into the aortic root over a J-wire, engaged the RCA and took the FFR wire into the aortic anjelica t. Pressures were equalized and then the wire was advanced through the RCA and did FFR using Lexisca n, which was negative and pulling the wire back, there was no drift and final angiogram was satisfact ory. Then I exchanged for 6-Kosovan [place] left guide and engaged the left main and sent FFR wire afte r equalizing pressures in the aortic root into the distal LAD and did FFR, which was negative at 0.87 and then pulling back, there was no drift and final angiogram was satisfactory. I then removed the guide and sheath and placed TR band with good hemostasis. Findings: 1.Left main: Large and normal. 2.LAD: Diffuse proximal 50% stenosis and then a patent stent with 20% to 30% ISR. Then, the LAD in the mid to distal has focal 50% and then all the way distal and close to the apex has focal 70% sten osis. 3.Left circumflex is large and dominant and no significant disease. 4.RCA is small, non dominant, mid 60% stenosis with negative FFR of 0.89. 5.Elevated LVEDP at 16 mmHg. Conclusion: 1.Moderate coronary artery disease by fractional flow reserve as outlined above. 2.Slightly elevated left ventricular end-diastolic pressure. Recommendation: The patient can be released today on home medications with the addition of Imdur 30 mg daily and follow up with me in the office. SR/MODL Voice ID: [id number] Report ID: [id number]
--- NOTE | 2022-11-09 07:10 | ECHO ---
HEIGHT: 5 ft 11 in WEIGHT: 245 lb 0 oz DATE OF STUDY: 11/06/[address]: Hayden Johnson NP 2-DIMENSIONAL: YES M.MODE: YES DOPPLER: YES COLOR FLOW: MILA TDS: YES PORTABLE: YES DEFINITY: BUBBLE STUDY: DIAGNOSIS: CHEST PAIN CARDIAC HISTORY: CATHERIZATION: YES SURGERY: NO PROSTHETIC VALVE: NO PACEMAKER: NO MEASUREMENTS (cm) DIASTOLIC (NORMALS) SYSTOLIC (NORMALS) IVSd 1.0 (0.6-1.2) LA Diam 2.6 (1.9-4.0) LVEF 55-60% LVIDd 4.4 (3.5-5.7) LVIDs 3.2 (2.0-3.5) %FS 27% LVPWd 1.2 (0.6-1.2) Ao Diam 3.2 (2.0-3.7) 2 DIMENSIONAL ASSESSMENT: RIGHT ATRIUM: NORMAL LEFT ATRIUM: NORMAL RIGHT VENTRICLE: NORMAL LEFT VENTRICLE: NORMAL TRICUSPID VALVE: NORMAL MITRAL VALVE: NORMAL PULMONIC VALVE: NORMAL AORTIC VALVE: NORMAL PERICARDIAL EFFUSION: NONE AORTIC ROOT: NORMAL LEFT VENTRICULAR WALL MOTION: NORMAL DOPPLER/COLOR FLOW: NORMAL COMMENTS: 1. NORMAL LEFT VENTRICULAR EJECTION FRACTION 55-60% 2. NORMAL WALL MOTION 3. MILD DIASTOLIC DYSFUNCTION TECHNOLOGIST: ELISEO LOBATO
== END 2022-11-06 19:46 | disposition home or self-care (01) ==
LOC: ER 11:45 → ERHOLD 13:58 → 2ND 15:28
PROVIDERS: ADMIT Internal Medicine; ATTEND Internal Medicine
DX: I21.4 Non-ST elevation (NSTEMI) myocardial infarction (principal); I25.10 Atherosclerotic heart disease of native coronary artery without angina pectoris; T82.855A Stenosis of coronary artery stent, initial encounter; I10 Essential (primary) hypertension; E66.9 Obesity, unspecified; Z68.34 Body mass index [BMI] 34.0-34.9, adult; Z71.3 Dietary counseling and surveillance; Z79.82 Long term (current) use of aspirin; Z79.899 Other long term (current) drug therapy; Z80.0 Family history of malignant neoplasm of digestive organs
CPT/HCPCS: 93005; 93306; 85025 ×2; 80048 ×2; 36415 ×2; 83735 ×2; 85610; 80061; 80076; 85347 ×3; 85730 ×3; 84443; 81003; 84484 ×5; 84439; 83880; 71045; 93458; 76937; 93571; 93572; 99285; 87811; C1893; Q9967; J2001; J1644 ×4; J2250; J3010; J2785 ×3; G0378 ×4; J7040; C1769; J0461; J2405

== ENCOUNTER 2025-01-18 10:59 | Day surgery (SDC) | payer OTHER ==
[2025-01-09 14:30] LABS: Absolute Eosinophils 0.3 K/uL (0-0.5); Absolute Lymphocytes (CBC) 1.4 K/uL (0.7-4.9); Absolute Monocytes 0.8 K/uL (0.1-1.3); Absolute Neutrophil 3.9 K/uL (1.8-8.0); Basophils % 0.7 % (0-1.3); Eosinophils % 4.5 % (0-4.4); Hematocrit 40.6 % (39.6-49.0); Hemoglobin 14.3 g/dL (13.6-17.9); Lymphocytes % 21.5 % (15.3-44.8); MCH 33.3 pg (27.0-35.0); MCHC 35.1 g/dL (32.0-36.0); MCV 94.9 fL (80-100); MPV 7.4 fL (7.6-11.3); Monocytes % 12.1 % (3.3-12.3); Neutrophils % 61.2 % (41.7-73.7); Platelets 206 thou/uL (152-406); RBC Red Blood Cell Count 4.28 M/uL (4.33-5.43); Red Cell Distribution Width 13.4 % (12.1-15.2)
[2025-01-09 14:40] LABS: PT Prothrombin Time 11.4 SECONDS (10-13.0); PTT, Activated Partial Thromb 29.8 SECONDS (27.2-37.4)
[2025-01-09 14:45] LABS: Anion Gap 7.8 mEq/L (5.0-15.0); Potassium 3.8 mEq/L (3.5-5.1)
--- NOTE | 2025-01-09 15:10 | RAD REPORT ---
EXAMINATION: TWO VIEW CHEST XR CLINICAL INDICATION: Pre-op pending heart catheterization TECHNIQUE: 2 views of the chest was performed. COMPARISON: 11/05/2022 FINDINGS: The lungs are hyperexpanded suggesting COPD. The heart is upper limit of normal in size. No displaced fractures evident. IMPRESSION: COPD is suspected without acute finding identified.
--- NOTE | 2025-01-10 12:37 | EKG ---
Test Date: 2025-01-09 Test Time: 14:08:55 [facility]anger: MEASUREMENT RESULTS: Intervals: Rate: 82 HI: 158 QRSD: 110 QT: 394 QTc: 460 [place]: P: 20 HI: 158 QRS: 64 T: 60 INTERPRETIVE STATEMENTS: Normal sinus rhythm Cannot rule out Anterior infarct, age undetermined Abnormal ECG Compared to ECG 11/05/2022 11:49:36 Myocardial infarct finding now present ST (T wave) deviation no longer present Electronically Signed On 01-10-25 12:36:03 CDT by Roger Villavicencio
[2025-01-18] MEDS ORDERED: NA CHLORIDE 0.9% 500 ML ONE (11:21)
[2025-01-18] MEDS ORDERED: HEPA 1000U/500MLS 2,000 UNIT/1,000 ML BAG IV ONE (11:41)
[2025-01-18] MEDS ORDERED: LIDOCAINE 1% 20 ML MDV ONE (11:41)
[2025-01-18] MEDS ORDERED: HEPARIN 10,000 UNIT/10 ML VIAL IV ONE (11:41)
[2025-01-18] MEDS ORDERED: VERAPAMIL HCL 10 MG/4 ML VIAL IV ONE (11:41)
[2025-01-18] MEDS ORDERED: MIDAZOLAM HCL 2 MG/2 ML INJ ONE (11:42)
[2025-01-18] MEDS ORDERED: FENTANYL CITR 100 MCG/2 ML ONE (11:42)
[2025-01-18] MEDS ORDERED: ATROPINE SULF 1 MG/10 ML SYR IV ONE (11:42)
[2025-01-18] MEDS ORDERED: CLOPIDOGREL 75 MG TABLET ONE (11:42)
[2025-01-18] MEDS ORDERED: ASPIRIN 325 MG TAB ONE (11:43)
[2025-01-18] MEDS ORDERED: TICAGRELOR 90 MG TABLET PO ONE (11:43)
[2025-01-18] MEDS ORDERED: HEPARIN 5000 UNIT/ML 1 ML VIAL ONE (11:43)
[2025-01-18 16:21] VITALS: BP 156/85
[2025-01-18 16:50] VITALS: O2SAT 97
--- NOTE | 2025-01-22 16:02 | OP ---
Date of Procedure: 01/18/2025 Surgeon: MELANIA ORDAZ Procedures Performed: 1. Selective coronary angiogram. 2. Left heart catheterization. 3. PCI of proximal LAD severe stenosis, I used a 3.5 x 32 mm Synergy drug-eluting stent. Indication: Unstable angina, abnormal stress test. Access: Right radial artery 6-Ivorian closed with TR band. Complications: None. Bleeding: Less than 50 mL. Total Sedation Time: 1 hour. Description Of Procedure: After risks, benefits, and alternatives were explained, the patient agreed to procedure, signed informed consent. The patient was [facility], prepped and draped in sterile fashion. Then, I accessed right radial artery using pediatric melissa ropuncture kit, placed 6-Ivorian slender sheath and took 5-Ivorian [place] 4.0 catheter over a J-wire int o the aortic root across the aortic valve, measured the LVEDP. Pullback did not record any gradient, then engaged the left main, took standard views and then in the RCA, took standard views, and we gav e systemic heparin to assure ACT level above 250 throughout the procedure and loaded with 180 mg of B rilinta. The patient is on aspirin and then took EBU 3.5 guide into the aortic root, engaged left ma in, and then took a Runthrough wire into the LAD, placed it distally, and using a 3.0 balloon, the le patricia expanded very well and then I placed 3.5 x 32 mm Synergy drug-eluting stent to overlap with the mid LAD stent and to cover the proximal part. Excellent expansion and 0% residual stenosis, NEGRO-3 f low, then wire was removed. The final angiogram was satisfactory. The patient was sent to Recovery in stable condition. Findings: 1. Left main is normal. 2. LAD; proximal 80%, and proximal to mid LAD, there is a stent with 80% in-stent restenosis, status post successful PCI using 3.5 x 32 mm Synergy drug-eluting stent. Mid segment of the LAD is clean. Mid to distal, there is focal 60% to 70%, and in distal, there is focal 70% to 80% stenosis, but the artery is very small. 3. Left circumflex; proximal 40% and it is a dominant circulation. 4. RCA; small, nondominant with proximal to mid 70% stenosis. Conclusions: 1. Severe proximal LAD stenosis, status post successful PCI as above. 2. Moderate to severe distal LAD stenosis. I will leave to medical management at the present time. If he continues to have symptoms, we will plan to bring him back and try a balloon angioplasty. The vessel is small to all the stent and it is very distal, and we will plan of doing a stress test on hi m in over 3 months' period and plan accordingly. 3. Moderate left circumflex and severe RCA stenosis. The RCA is nondominant. Plan: 1. Continue aspirin, Brilinta, and high-dose statin. 2. Stress test in 3 months and plan accordingly. SR/MODL Voice ID: [id number] Report ID: [id number]
== END 2025-01-18 16:45 | disposition home or self-care (01) ==
LOC: CCL 10:59
PROVIDERS: ATTEND Internal Medicine
DX: I25.110 Atherosclerotic heart disease of native coronary artery with unstable angina pectoris (principal); T82.855A Stenosis of coronary artery stent, initial encounter; I10 Essential (primary) hypertension; E78.2 Mixed hyperlipidemia; Z79.899 Other long term (current) drug therapy
CPT/HCPCS: 93005; 85025; 80048; 36415; 85610; 85347; 85730; 71046; 93458; 76937; C1893; Q9967; C1725; C9600; J1644; J2003; J2250; J3010; J7040; 99152; 99153; C9601; J0461